=== PATIENT | female | born 2000 | race African-American/Black ===

== ENCOUNTER 2018-07-13 21:20 | Emergency (ER) | payer OTHER ==
[~2018-07-13] VITALS: Ht 157.5 cm; Wt 59.0 kg
[2018-07-13] MEDS: ACETAMINOPHEN 500 MG TABLET PO ONE (20:22)
--- NOTE | 2018-07-13 22:04 | PHYS DOC ---
Past Medical History Past Medical History: No Pertinent History Past Surgical History: No Surgical History Alcohol Use: None Drug Use: None Adult General Chief Complaint Chief Complaint: HEADACHE HPI HPI Patient is a 17 year old female who presents with frontal headache that comes and goes for the last few days. Patient States that she does have a history of headaches but states that she has never been diagnosed migraines. Patient states at times that she will have nausea. Patient denies recent illness, vomiting, chest pain, shortness of air, diarrhea. Patient states she's been drinking plenty of fluids. Patient is 37 weeks . Patient rates that she is not taking any medications for her headache. Review of Systems Review of Systems Constitutional: Denies fever or chills [] Eyes: Denies change in visual acuity, redness, or eye pain [] HENT: Denies nasal congestion or sore throat [] Respiratory: Denies cough or shortness of breath [] Cardiovascular: No additional information not addressed in HPI [] GI: Denies abdominal pain, nausea, vomiting, bloody stools or diarrhea [] : Denies dysuria or hematuria [] Musculoskeletal: Denies back pain or joint pain [] Integument: Denies rash or skin lesions [] Neurologic: Frontal headache. Denies focal weakness or sensory changes [] Endocrine: Denies polyuria or polydipsia [] All other systems were reviewed and found to be within normal limits, except as documented in this note. Current Medications Current Medications Current Medications Medications (Trade) Dose Ordered Sig/Maycol Start Time Stop Time Status Last Admin Dose Admin Acetaminophen (Tylenol) 1,000 mg 1X ONCE 07/13/18 22:15 07/13/18 22:16 DC Allergies Allergies Allergies Coded Allergies Type Severity Reaction Last Updated Verified No Known Drug Allergies 07/13/18 No Physical Exam Physical Exam Constitutional: Well developed, well nourished, no acute distress, non-toxic appearance. [] HENT: Normocephalic, atraumatic, bilateral external ears normal, oropharynx moist, no oral exudates, nose normal. [] Eyes: PERRLA, EOMI, conjunctiva normal, no discharge. [] Neck: Normal range of motion, no tenderness, supple, no stridor. [] Cardiovascular:Heart rate regular rhythm, no murmur [] Lungs & Thorax: Bilateral breath sounds clear to auscultation [] Abdomen: Bowel sounds normal, soft, no tenderness, no masses, no pulsatile masses. [] Skin: Warm, dry, no erythema, no rash. [] Back: No tenderness, no CVA tenderness. [] Extremities: No tenderness, no cyanosis, no clubbing, ROM intact, no edema. [] Neurologic: Alert and oriented X 3, normal motor function, normal sensory function, no focal deficits noted. [] Psychologic: Affect normal, judgement normal, mood normal. [] Current Patient Data Vital Signs Vital Signs Date Time Temp Pulse Resp B/P (MAP) Pulse Ox O2 Delivery O2 Flow Rate FiO2 07/13/18 21:20 98.4 93 18 118/59 (78) 98 Room Air 98.4 Lab Values Laboratory Tests Test 07/13/18 21:56 07/13/18 22:23 Urine Collection Type Unknown Urine Color Yellow Urine Clarity Cloudy Urine pH 8.0 Urine Specific [place] 1.015 Urine Protein Negative mg/dL (NEG-TRACE) Urine Glucose (UA) Negative mg/dL (NEG) Urine Ketones (Stick) Negative mg/dL (NEG) Urine Blood Negative (NEG) Urine Nitrite Negative (NEG) Urine Bilirubin Negative (NEG) Urine Urobilinogen Dipstick 1.0 mg/dL (0.2 mg/dL) Urine Leukocyte Esterase Moderate (NEG) Urine RBC 0 /HPF (0-2) Urine WBC 5-10 /HPF (0-4) Urine Squamous Epithelial Cells Many /LPF Urine Bacteria Moderate /HPF (0-FEW) Urine Yeast Present /HPF White Blood Count 9.2 x10^3/uL (4.0-11.0) Red Blood Count 3.43 x10^6/uL (3.50-5.40) L Hemoglobin 9.5 g/dL (12.0-15.5) L Hematocrit 28.3 % (36.0-47.0) L Mean Corpuscular Volume 82 fL (79-100) Mean Corpuscular Hemoglobin 28 pg (25-35) Mean Corpuscular Hemoglobin Concent 34 g/dL (31-37) Red Cell Distribution Width 15.5 % (11.5-14.5) H Platelet Count 241 x10^3/uL (140-400) Neutrophils (%) (Auto) 81 % (31-73) H Lymphocytes (%) (Auto) 11 % (24-48) L Monocytes (%) (Auto) 7 % (0-9) Eosinophils (%) (Auto) 1 % (0-3) Basophils (%) (Auto) 0 % (0-3) Neutrophils # (Auto) 7.4 x10^3uL (1.8-7.7) Lymphocytes # (Auto) 1.0 x10^3/uL (1.0-4.8) Monocytes # (Auto) 0.6 x10^3/uL (0.0-1.1) Eosinophils # (Auto) 0.1 x10^3/uL (0.0-0.7) Basophils # (Auto) 0.0 x10^3/uL (0.0-0.2) Sodium Level 136 mmol/L (136-145) Potassium Level 3.7 mmol/L (3.5-5.1) Chloride Level 103 mmol/L (98-107) Carbon Dioxide Level 26 mmol/L (21-32) Anion Gap 7 (6-14) Blood Urea Nitrogen 8 mg/dL (7-20) Creatinine 0.6 mg/dL (0.6-1.0) Estimated GFR (Cockcroft-Gault) 155.8 Glucose Level 98 mg/dL (70-99) Calcium Level 8.8 mg/dL (8.5-10.1) Laboratory Tests 07/13/18 22:23 Laboratory Tests 07/13/18 22:23 EKG EKG Sinus rhythm, no specific T wave abnormality, no STEMI Interpretation Time: [address] [facility] Radiology/Procedures Radiology/Procedures [] Course & Med Decision Making Course & Med Decision Making Patient is a 17 year old female who presents with frontal headache that comes and goes for the last few days. Patient States that she does have a history of headaches but states that she has never been diagnosed migraines. Patient states at times that she will have nausea. Patient denies recent illness, vomiting, chest pain, shortness of air, diarrhea. Patient states she's been drinking plenty of fluids. Patient is 37 weeks . Patient states that she is not taking any medications for her headache. Patient is alert and oriented. Patient denies any numbness tingling or weakness. Patient is neurologically intact. Pupils are equal and reactive. Patient denies any ear pain or throat pain. Patient denies any urinary symptoms. Bilateral tympanic membranes are pearly white. Patient denies allergies to any medications. She has no extremity edema. Patient is given Tylenol. Patient is worried that because of her anemia that maybe that is what is causing her headache or dizziness at times. Patient denies any abdominal pain, back pain, vaginal bleeding or discharge. Blood work is unremarkable. Patients urine is infected and she will be treated with Macrobid. Patient is stable in no distress. [] Dragon Disclaimer Dragon Disclaimer This electronic medical record was generated, in whole or in part, using a voice recognition dictation system. Departure Departure Impression: Primary Impression: UTI (urinary tract infection) during Disposition: HOME, SELF-CARE Condition: STABLE Referrals: ZEUS PAGAN (PCP) Patient Instructions: - Urinary Tract Infection Additional Instructions: Follow up with your OB doctor as soon as possible if headache gets worse. Take Tylenol for pain. Scripts Nitrofurantoin Monohyd/M-Cryst (MACROBID 100 MG CAPSULE) 100 Mg Capsule 1 CAP PO BID, #20 CAP Prov: SHELBY DONALDSON APRN 07/13/18 Problem Qualifiers Primary Impression: UTI (urinary tract infection) during Trimester: third trimester Qualified Codes: O23.43 - Unspecified infection of urinary tract in , third trimester SHELBY DONALDSON APRN Jul 13, 2018 22:04
[2018-07-13 22:08] LABS: BILIRUBIN,URINE NEGATIVE (NEG); CLARITY,URINE CLOUDY; COLOR,URINE YELLOW; NITRITE,URINE NEGATIVE (NEG); PROTEIN,URINE NEGATIVE (NEG-TRACE)
[2018-07-13 22:17] LABS: BACTERIA,URINE MODERATE /HPF (0-FEW); RBC,URINE 0 /HPF (0-2)
[2018-07-13 22:18] LABS: SQUAMOUS EPITHELIAL CELL,UR MANY /LPF; YEAST,URINE PRESENT /HPF
[2018-07-13 22:36] LABS: BASO % 0 % (0-3); EOS # 0.1 x10^3/uL (0.0-0.7); EOS % 1 % (0-3); HEMATOCRIT 28.3 % (36.0-47.0); HEMOGLOBIN 9.5 g/dL (12.0-15.5); LYMPH % 11 % (24-48); MEAN CORPUSCULAR HEMOGLOBIN 28 pg (25-35); MEAN CORPUSCULAR HGB CONC 34 g/dL (31-37); MEAN CORPUSCULAR VOLUME 82 fL (79-100); MONO # 0.6 x10^3/uL (0.0-1.1); MONO % 7 % (0-9); NEUT # 7.4 x10^3uL (1.8-7.7); NEUT % 81 % (31-73); PLATELET COUNT 241 x10^3/uL (140-400); RED BLOOD COUNT 3.43 x10^6/uL (3.50-5.40); RED CELL DISTRIBUTION WIDTH 15.5 % (11.5-14.5); WHITE BLOOD COUNT 9.2 x10^3/uL (4.0-11.0)
[2018-07-13 22:39] LABS: CALCIUM 8.8 mg/dL (8.5-10.1); CREATININE 0.6 mg/dL (0.6-1.0); GFR 155.8; POTASSIUM 3.7 mmol/L (3.5-5.1)
[2018-07-13] MEDS ORDERED: NITR100C62 PO (22:56)
[2018-07-13 23:00] VITALS: BP 118/66
--- NOTE | 2018-07-14 10:21 | EKG ---
[facility] [address] [place] [address] Test Date: 2018-07-13 Test Time: 23:00:04 Pat Name: YUDY BUSCH Department: Room: Gender: F [employer] Floorperson: : 2000 Requested By: SHELBY DONALDSON Order Number: [id number] Reading MD: Measurements Intervals [place] Rate: 94 P: 44 HI: 144 QRS: 78 QRSD: 76 T: 33 QT: 332 QTc: 420 Interpretive Statements SINUS RHYTHM NON SPECIFIC T ABNORMALITY NON SPECIFIC ST-T ABNORMALITY (ELEVATION) BORDERLINE ECG No previous ECG available for comparison
== END 2018-07-13 23:56 | disposition home or self-care (01) ==
LOC: ER 21:20
DX: O23.43 Unspecified infection of urinary tract in pregnancy, third trimester (principal); R51 Headache; Z3A.37 37 weeks gestation of pregnancy
CPT/HCPCS: 36415; 80048; 81001; 85025; 87086; 93005; 99285-25

== ENCOUNTER 2020-04-08 12:13 | Emergency (ER) | payer MEDICAID, OTHER ==
[~2020-04-08] VITALS: Ht 154.9 cm; Wt 49.0 kg
[~2020-04-08 12:13] MED LIST: NITR100C62 PO
[2020-04-08 13:14] LABS: BILIRUBIN,URINE NEGATIVE (NEG); CLARITY,URINE CLEAR; COLOR,URINE YELLOW; NITRITE,URINE NEGATIVE (NEG); PH,URINE 5.5 (<5.0-8.0); PROTEIN,URINE NEGATIVE (NEG-TRACE); UROBILINOGEN,URINE 0.2 mg/dL (0.2 mg/dL)
[2020-04-08] MEDS ORDERED: MORPHINE SULFATE 2 MG/ML VIAL. IV ONE (13:15)
[2020-04-08 13:24] LABS: SQUAMOUS EPITHELIAL CELL,UR FEW /LPF
[2020-04-08 13:25] LABS: BACTERIA,URINE 0 /HPF (0-FEW); WBC,URINE 20-40 /HPF (0-4)
[2020-04-08 13:46] LABS: BASO % 0 % (0-3); EOS # 0.1 x10^3/uL (0.0-0.7); EOS % 1 % (0-3); HEMOGLOBIN 10.9 g/dL (12.0-15.5); LYMPH # 0.9 x10^3/uL (1.0-4.8); LYMPH % 9 % (24-48); MEAN CORPUSCULAR HEMOGLOBIN 26 pg (25-35); MEAN CORPUSCULAR HGB CONC 33 g/dL (31-37); MEAN CORPUSCULAR VOLUME 79 fL (79-100); MONO # 0.5 x10^3/uL (0.0-1.1); MONO % 5 % (0-9); NEUT # 8.2 x10^3/uL (1.8-7.7); NEUT % 85 % (31-73); PLATELET COUNT 269 x10^3/uL (140-400); RED BLOOD COUNT 4.16 x10^6/uL (3.50-5.40); RED CELL DISTRIBUTION WIDTH 22.6 % (11.5-14.5); WHITE BLOOD COUNT 9.7 x10^3/uL (4.0-11.0)
[2020-04-08 13:54] LABS: CALCIUM 8.7 mg/dL (8.5-10.1); CREATININE 0.8 mg/dL (0.6-1.0); GFR 109.6; POTASSIUM 3.3 mmol/L (3.5-5.1)
[2020-04-08 14:01] LABS: ALBUMIN 2.9 g/dL (3.4-5.0); ALBUMIN/GLOBULIN RATIO 0.6 (1.0-1.7); MAGNESIUM 1.8 mg/dL (1.8-2.4); TOTAL BILIRUBIN 0.3 mg/dL (0.2-1.0); TOTAL PROTEIN 7.6 g/dL (6.4-8.2)
--- NOTE | 2020-04-08 14:03 | RAD ---
Examination: Ultrasound abdomen limited History history of right upper quadrant pain COMPARISON: None available. FINDINGS: The visualized pancreas grossly appears unremarkable. The liver length measures 15.8 cm in length. No evidence of gallstones identified. The common bile duct measures 2.8 mm in diameter. The right kidney measures 10.4 x 5.0 x 3.8 cm. The visualized IVC within normal limits of dimension. IMPRESSION: 1. Unremarkable exam. Electronically signed by: Waylon Latif MD (04/08/2020 2:00 PM) [id number]
[2020-04-08] MEDS ORDERED: IOHEXOL 350 MG/ML 100 ML VIAL. IV ONE (14:30)
[2020-04-08] MEDS ORDERED: CONTRAST GIVEN. MC PRN (14:45)
[2020-04-08 14:50] LABS: ANISOCYTOSIS MOD; PLT ESTIMATE ADEQUATE (ADEQUATE)
--- NOTE | 2020-04-08 15:51 | RAD ---
CTA OF THE CHEST WITH AND WITHOUT CONTRAST Clinical indications: Right lower rib pain and upper right abdominal pain. Patient is status post 2 weeks . Technique: Noncontrast axial localizer was performed. After IV infusion of 75 cc of Omnipaque 350, helical CT scanning of the chest was performed using the CT pulmonary embolism protocol. A coronal MIP reconstruction was generated. PQRS compliance Statement One or more of the following individualized dose reduction techniques were utilized for this study: 1. Automated exposure control 2. Adjustment of the mA and/or kV according to patient size 3. Use of iterative reconstruction technique Comparison: None available. Findings: No pulmonary embolism is evident. No focal aneurysmal dilatation or dissection of the thoracic aorta is seen. Heart size is normal and no pericardial effusion is seen. No enlarged thoracic lymphadenopathy is evident. A small focus of peripheral groundglass lung infiltrate is seen within the anterolateral aspect of the right upper lobe most likely representing atelectasis. Otherwise no lung consolidation or lung mass or pleural effusion or pneumothorax is evident. The proximal bronchial tree is patent. Small hepatic cyst is seen involving the dome of the right lobe of the liver. No adrenal mass is evident. No lytic process is seen. IMPRESSION: No pulmonary embolism. No lung consolidation. Electronically signed by: Flash Olguin MD (04/08/2020 3:48 PM) [id number]
[2020-04-08] MEDS ORDERED: CEPH500T PO (17:00)
[2020-04-08] MEDS ORDERED: FLUC150T PO (17:00)
--- NOTE | 2020-04-08 17:01 | PHYS DOC ---
Past Medical History Past Medical History: No Pertinent History Past Surgical History: No Surgical History Smoking Status: Never Smoker Alcohol Use: None Drug Use: None General Adult EDM: Chief Complaint: GI PROBLEM HPI: HPI: Patient is a 19 year old female who presents with waking up at about 10:00 this morning with right upper quadrant pain that she rates at a 4-5 out of 10 patient denies nausea vomiting diarrhea. Patient denies constipation or bowel problems. Patient states that she recently had a baby on February 21 of this year and is currently not breast-feeding. Patient is a G2, P2, and states that she has had no problems with her pregnancies. Patient denies changes in eating habits. Patient denies urinary problems or symptoms of a UTI. Patient states that this right upper quadrant pain radiates to her right lower back, but denies right lower quadrant pain. Patient denies fever or chills. Patient denies chest pain denies shortness of breath, denies rashes, denies musculoskeletal pains or joint pains. Patient denies other people living in her house with the same symptoms. Review of Systems: Review of Systems: Constitutional: Denies fever or chills. [] Eyes: Denies change in visual acuity. [] HENT: Denies nasal congestion or sore throat. [] Respiratory: Denies cough or shortness of breath. [] Cardiovascular: Denies chest pain or edema. [] GI: Reports right upper abdominal pain with radiation to right lower back, denies pain on other abdominal quadrants, denies nausea, vomiting, bloody stools or diarrhea. [] : Denies dysuria. [] Musculoskeletal: Reports right lower back pain, denies joint pain. [] Integument: Denies rash. [] Neurologic: Denies headache, focal weakness or sensory changes. [] Endocrine: Denies polyuria or polydipsia. [] Lymphatic: Denies swollen glands. [] Psychiatric: Denies depression or anxiety. [] Heart Score: Risk Factors: Risk Factors: DM, Current or recent (<one month) smoker, HTN, HLP, family history of CAD, obesity. Risk Scores: Score 0 - 3: 2.5% MACE over next 6 weeks - Discharge Home Score 4 - 6: 20.3% MACE over next 6 weeks - Admit for Clinical Observation Score 7 - 10: 72.7% MACE over next 6 weeks - Early Invasive Strategies Family History: Family History: No significant family history associated with this visit. Current Medications: Current Medications Medications (Trade) Dose Ordered Sig/Maycol Start Time Stop Time Status Last Admin Dose Admin Info (CONTRAST GIVEN -- Rx MONITORING) 1 each PRN DAILY PRN 04/08/20 14:45 04/10/20 14:44 Iohexol (Omnipaque 350 Mg/ml) 75 ml 1X ONCE 04/08/20 14:30 04/08/20 14:32 DC 04/08/20 14:54 75 ML Morphine Sulfate (Morphine Sulfate) 2 mg 1X ONCE 04/08/20 13:15 04/08/20 13:16 DC 04/08/20 14:03 2 MG Allergies: Allergies: Allergies Coded Allergies Type Severity Reaction Last Updated Verified No Known Drug Allergies 07/13/18 No Physical Exam: PE: Constitutional: Well developed, well nourished, no acute distress, non-toxic appearance. [] HENT: Normocephalic, atraumatic, bilateral external ears normal, oropharynx moist, no oral exudates, nose normal. [] Eyes: PERRLA, EOMI, conjunctiva normal, no discharge. [] Neck: Normal range of motion, no tenderness, supple, no stridor. [] Cardiovascular:Heart rate regular rhythm, no murmur [] Lungs & Thorax: Bilateral breath sounds clear to auscultation [] Abdomen: Bowel sounds normal, soft with tenderness to the right upper quadrant, all other quadrants without pain to palpation, no masses, no pulsatile masses. [] Skin: Warm, dry, no erythema, no rash. [] Back: Right lower back tenderness, no CVA tenderness. [] Extremities: No tenderness, no cyanosis, no clubbing, ROM intact, no edema. [] Neurologic: Alert and oriented X 3, normal motor function, normal sensory function, no focal deficits noted. [] Psychologic: Affect normal, judgement normal, mood normal. [] Current Patient Data: Labs: Laboratory Tests Test 04/08/20 12:45 04/08/20 12:58 04/08/20 13:04 04/08/20 13:33 Urine Collection Type Unknown Urine Color Yellow Urine Clarity Clear Urine pH 5.5 (<5.0-8.0) Urine Specific [place] 1.020 (1.000-1.030) Urine Protein Negative mg/dL (NEG-TRACE) Urine Glucose (UA) Negative mg/dL (NEG) Urine Ketones (Stick) Negative mg/dL (NEG) Urine Blood Negative (NEG) Urine Nitrite Negative (NEG) Urine Bilirubin Negative (NEG) Urine Urobilinogen Dipstick 0.2 mg/dL (0.2 mg/dL) Urine Leukocyte Esterase Small (NEG) Urine RBC 3-5 /HPF (0-2) Urine WBC 20-40 /HPF (0-4) Urine Squamous Epithelial Cells Few /LPF Urine Bacteria 0 /HPF (0-FEW) Urine Mucus Marked /LPF POC Urine HCG, Qualitative Hcg negative (Negative) White Blood Count 9.7 x10^3/uL (4.0-11.0) Red Blood Count 4.16 x10^6/uL (3.50-5.40) Hemoglobin 10.9 g/dL (12.0-15.5) L Hematocrit 33.0 % (36.0-47.0) L Mean Corpuscular Volume 79 fL (79-100) Mean Corpuscular Hemoglobin 26 pg (25-35) Mean Corpuscular Hemoglobin Concent 33 g/dL (31-37) Red Cell Distribution Width 22.6 % (11.5-14.5) H Platelet Count 269 x10^3/uL (140-400) Neutrophils (%) (Auto) 85 % (31-73) H Lymphocytes (%) (Auto) 9 % (24-48) L Monocytes (%) (Auto) 5 % (0-9) Eosinophils (%) (Auto) 1 % (0-3) Basophils (%) (Auto) 0 % (0-3) Neutrophils # (Auto) 8.2 x10^3/uL (1.8-7.7) H Lymphocytes # (Auto) 0.9 x10^3/uL (1.0-4.8) L Monocytes # (Auto) 0.5 x10^3/uL (0.0-1.1) Eosinophils # (Auto) 0.1 x10^3/uL (0.0-0.7) Basophils # (Auto) 0.0 x10^3/uL (0.0-0.2) Platelet Estimate Adequate (ADEQUATE) Anisocytosis Mod Sodium Level 138 mmol/L (136-145) Potassium Level 3.3 mmol/L (3.5-5.1) L Chloride Level 102 mmol/L (98-107) Carbon Dioxide Level 28 mmol/L (21-32) Anion Gap 8 (6-14) Blood Urea Nitrogen 9 mg/dL (7-20) Creatinine 0.8 mg/dL (0.6-1.0) Estimated GFR (Cockcroft-Gault) 109.6 BUN/Creatinine Ratio 11 (6-20) Glucose Level 93 mg/dL (70-99) Calcium Level 8.7 mg/dL (8.5-10.1) Magnesium Level 1.8 mg/dL (1.8-2.4) Total Bilirubin 0.3 mg/dL (0.2-1.0) Aspartate Amino Transferase (AST) 15 U/L (15-37) Alanine Aminotransferase (ALT) 9 U/L (14-59) L Alkaline Phosphatase 127 U/L (46-116) H Total Protein 7.6 g/dL (6.4-8.2) Albumin 2.9 g/dL (3.4-5.0) L Albumin/Globulin Ratio 0.6 (1.0-1.7) L Lipase 70 U/L (73-393) L Laboratory Tests 04/08/20 13:04 Laboratory Tests 04/08/20 13:33 Vital Signs: Vital Signs Date Time Temp Pulse Resp B/P (MAP) Pulse Ox O2 Delivery O2 Flow Rate FiO2 04/08/20 14:03 98 Room Air 04/08/20 12:43 99.2 108 16 126/66 (86) 99.2 EKG: EKG: [] Radiology/Procedures: Radiology/Procedures: PROCEDURE: CT ANGIOGRAPHY CHEST CTA OF THE CHEST WITH AND WITHOUT CONTRAST Clinical indications: Right lower rib pain and upper right abdominal pain. Patient is status post 2 weeks . Technique: Noncontrast axial localizer was performed. After IV infusion of 75 cc of Omnipaque 350, helical CT scanning of the chest was performed using the CT pulmonary embolism protocol. A coronal MIP reconstruction was generated. PQRS compliance Statement One or more of the following individualized dose reduction techniques were utilized for this study: 1. Automated exposure control 2. Adjustment of the mA and/or kV according to patient size 3. Use of iterative reconstruction technique Comparison: None available. Findings: No pulmonary embolism is evident. No focal aneurysmal dilatation or dissection of the thoracic aorta is seen. Heart size is normal and no pericardial effusion is seen. No enlarged thoracic lymphadenopathy is evident. A small focus of peripheral groundglass lung infiltrate is seen within the anterolateral aspect of the right upper lobe most likely representing atelectasis. Otherwise no lung consolidation or lung mass or pleural effusion or pneumothorax is evident. The proximal bronchial tree is patent. Small hepatic cyst is seen involving the dome of the right lobe of the liver. No adrenal mass is evident. No lytic process is seen. IMPRESSION: No pulmonary embolism. No lung consolidation. Electronically signed by: Clement Olguin MD (04/08/2020 3:48 PM) [id number] DICTATED and SIGNED BY: CLEMENT OLGUIN MD DATE: 04/08/20 154 PROCEDURE: ABDOMEN LTD Examination: Ultrasound abdomen limited History history of right upper quadrant pain COMPARISON: None available. FINDINGS: The visualized pancreas grossly appears unremarkable. The liver length measures 15.8 cm in length. No evidence of gallstones identified. The common bile duct measures 2.8 mm in diameter. The right kidney measures 10.4 x 5.0 x 3.8 cm. The visualized IVC within normal limits of dimension. IMPRESSION: 1. Unremarkable exam. Electronically signed by: Waylon Latif MD (04/08/2020 2:00 PM) [id number] DICTATED and SIGNED BY: WAYLON LATIF MD DATE: 04/08/20 1400 Course & Med Decision Making: Course & Med Decision Making Pertinent Labs and Imaging studies reviewed. (See chart for details) 19-year-old female presents to the ER today stating she woke up about 10:00 this morning with right upper quadrant pain that radiates down to her right lower back. Patient denies pain on all other abdominal quadrants. Patient denied nausea vomiting diarrhea or bowel problems. Patient states she had a baby of February 21 of this year. Patient is a G2, P2. Patient denies problems with her pregnancies. Patient denies changes in eating habits. Patient denies urinary problems or UTI symptoms. Patient is not concerned for STIs. Patient denies vaginal discharge. Patient denied chest pain or shortness of breath, denied fever or chills. Patient states she is not breast-feeding. Related to her recent , a CTA scan was done of her chest to rule out PE radiologist resulted negative. An abdominal ultrasound was also resulted negative per radiologist. Patient's urine revealed small amount of leukocyte Estrace without nitrates. Patient symptoms most likely related to simple cystitis. Will treat with Keflex p.o. to treat UTI. Also will prescribe Diflucan as patient reports getting yeast infections with taking antibiotics. Reviewed discharge home instructions with patient who is agreeable with taking antibiotics for a UTI. Patient was told to return to the emergency department if symptoms worsen, otherwise follow-up with her physician this week. Patient had no further questions. Dragon Disclaimer: Dragon Disclaimer: This electronic medical record was generated, in whole or in part, using a voice recognition dictation system. Departure Departure Impression: Primary Impression: UTI (urinary tract infection) Qualified Codes: N30.00 - Acute cystitis without hematuria Additional Impression: Abdominal pain Qualified Codes: R10.11 - Right upper quadrant pain Disposition: HOME, SELF-CARE Condition: GOOD Referrals: NO PCP (PCP) Patient Instructions: Abdominal Pain, - Urinary Tract Infection Additional Instructions: take medications as prescribed, follow up with your doctor if symptoms persist. take tylenol or motrin for pain. Scripts Cephalexin (CEPHALEXIN) 500 Mg Tablet 1 TAB PO BID, #20 TAB 0 Refills Prov: DWAIN BYRD APRN 04/08/20 Fluconazole (DIFLUCAN) 150 Mg Tablet 1 TAB PO ONCE, #1 TAB 1 Refill Prov: DWAIN BYRD APRN 04/08/20 Justicifation of Admission Dx: Justifications for Admission: Justification of Admission Dx: N/A DWAIN BYRD APRN Apr 08, 2020 17:01
[2020-04-08 17:15] VITALS: BP 132/64
== END 2020-04-08 18:20 | disposition home or self-care (01) ==
LOC: ER 12:13
DX: N30.00 Acute cystitis without hematuria (principal); R10.11 Right upper quadrant pain; Z79.899 Other long term (current) drug therapy
CPT/HCPCS: 36415; 71275; 76705; 80053; 81001; 81025; 83690; 83735; 85025; 87086; 96374; 99285; J2270; Q9967